=== PATIENT | male | born 1970 | race Caucasian/White ===

== ENCOUNTER 2020-11-30 01:04 | Emergency (ER) | payer OTHER ==
[2020-11-30 02:47] LABS: HEMOGLOBIN 14.8 gm/dl (14.0-17.5); RED BLOOD COUNT 4.69 M/UL (4.20-5.50); WHITE BLOOD COUNT 12.3 K/UL (4.5-11.0)
[2020-11-30 03:05] LABS: BUN/CREATININE RATIO 19 (0-10)
== END 2020-11-30 07:10 | disposition home or self-care (01) ==
LOC: ER1 01:04
DX: R07.2 Precordial pain (principal); I10 Essential (primary) hypertension
CPT/HCPCS: 71045; 80053; 82550; 82553; 83874; 84484; 85025; 93005; 99285

== ENCOUNTER → 2020-12-13 | Outpatient (CLI) | payer OTHER | LOC: HEART CORB 12:56 | DX: R07.2 Precordial pain (principal) ==

== ENCOUNTER → 2021-02-03 | Outpatient (CLI) | payer OTHER ==
[2021-02-03 12:15] LABS: RBC (AUTOMATED) 100 10^6 (0); WBC (AUTOMATED 3 10^3 (0-5)
[2021-02-03 12:17] LABS: WBC (AUTOMATED 4 10^3 (0-5)
[2021-02-03 12:49] LABS: GLUCOSE,CSF 60 mg/dL (50-80); TOTAL PROTEIN,CSF 68 mg/dL (20-45)
[2021-02-07 18:10] LABS: MYELIN BASIC PROTEIN, CSF 8.9 ng/mL (0.0-4.7)
== END ==
LOC: RAD 09:49
PROVIDERS: Psychiatry & Neurology Neurology
DX: R90.89 Other abnormal findings on diagnostic imaging of central nervous system (principal)
CPT/HCPCS: 82040; 82784; 82945; 83873; 83916; 84157; 87070; 87205; 87206; 87210; 89051